=== PATIENT | female | born 1995 | race African-American/Black ===

== ENCOUNTER 2016-10-17 17:57 | Emergency (ER) | payer BC, MEDICAID ==
[~2016-10-17] VITALS: Ht 170.2 cm; Wt 80.0 kg
[2016-10-17] MEDS ORDERED: ALBU18HF2 IH (18:13)
[2016-10-17] MEDS ORDERED: ALBUTEROL (0.083%) 2.5MG/3ML NEB HHN STA ×2 (21:10→22:04)
[2016-10-17] MEDS ORDERED: PREDNISONE 20MG TABLET PO STA (21:10)
[2016-10-17] MEDS ORDERED: IPRATROPIUM BROMIDE (0.02%) 0.5MG/2.5ML NEB HHN STA ×2 (21:10→22:04)
[2016-10-17] MEDS ORDERED: ALBUTEROL (0.5%) 2.5MG/0.5ML NEB HHN ONE (22:42)
[2016-10-17] MEDS ORDERED: ONDANSETRON 4MG ODT PO ONE (23:00)
[2016-10-18 01:59] VITALS: BP 138/90
== END 2016-10-18 02:00 | disposition home or self-care (01) ==
LOC: ER 19:14
DX: J18.9 Pneumonia, unspecified organism (principal); J45.909 Unspecified asthma, uncomplicated; F12.10 Cannabis abuse, uncomplicated; Z79.899 Other long term (current) drug therapy; Z98.890 Other specified postprocedural states
CPT/HCPCS: 71010; 81025; 94640; 99284; J7512; J7611; Q0162

== ENCOUNTER 2018-02-12 12:54 | Emergency (ER) | payer MEDICAID, OTHER ==
[~2018-02-12] VITALS: Ht 170.2 cm; Wt 75.3 kg
[~2018-02-12 12:54] MED LIST: ALBU18HF2 IH
[2018-02-12] MEDS ORDERED: IBUPROFEN 600MG TABLET PO ONE (13:15)
[2018-02-12 13:26] VITALS: BP 112/76
== END 2018-02-12 15:17 | disposition home or self-care (01) ==
LOC: ER 12:54
DX: L03.032 Cellulitis of left toe (principal); L03.031 Cellulitis of right toe; J45.909 Unspecified asthma, uncomplicated; F12.10 Cannabis abuse, uncomplicated; Z98.890 Other specified postprocedural states
CPT/HCPCS: 99283

== ENCOUNTER 2018-03-16 18:01 | Emergency (ER) | payer OTHER, MEDICAID ==
[~2018-03-16] VITALS: Ht 170.2 cm; Wt 80.0 kg
[2018-03-16 18:07] VITALS: BP 133/83
== END 2018-03-16 20:14 | disposition home or self-care (01) ==
LOC: ER 18:32
DX: L03.032 Cellulitis of left toe (principal); L03.031 Cellulitis of right toe; B35.3 Tinea pedis; F12.10 Cannabis abuse, uncomplicated; J45.909 Unspecified asthma, uncomplicated; Z98.890 Other specified postprocedural states; Z82.49 Family history of ischemic heart disease and other diseases of the circulatory system
CPT/HCPCS: 99283

== ENCOUNTER 2018-07-15 17:09 | Emergency (ER) | payer OTHER, MEDICAID ==
[~2018-07-15] VITALS: Ht 167.6 cm; Wt 75.0 kg
[2018-07-15] MEDS ORDERED: IBUPROFEN 600MG TABLET PO STA (18:28)
[2018-07-15 20:49] VITALS: BP 121/70
== END 2018-07-15 20:50 | disposition home or self-care (01) ==
LOC: ER 17:09
DX: S39.82XA Other specified injuries of lower back, initial encounter (principal); R51 Headache; M79.632 Pain in left forearm; J45.909 Unspecified asthma, uncomplicated; Z98.890 Other specified postprocedural states; V43.52XA Car driver injured in collision with other type car in traffic accident, initial encounter; Y93.89 Activity, other specified; Y92.488 Other paved roadways as the place of occurrence of the external cause
CPT/HCPCS: 72100; 73090; 81025; 99284

== ENCOUNTER 2018-07-23 13:37 | Emergency (ER) | payer MEDICAID, OTHER ==
[~2018-07-23] VITALS: Ht 170.2 cm; Wt 84.0 kg
[2018-07-23 18:48] LABS: CLARITY URINE CLEAR (CLEAR); COLOR URINE YELLOW (YELLOW); KETONES URINE NEGATIVE (NEGATIVE); LEUKOCYTE ESTERASE URINE 1+ (NEGATIVE); NITRITE URINE NEGATIVE (NEGATIVE); OCCULT BLOOD URINE NEGATIVE (NEGATIVE); PH URINE 5.5 (4.5-8.0); PROTEIN URINE NEGATIVE (NEGATIVE); SPECIFIC GRAVITY URINE 1.024 (1.005-1.030); UROBILINOGEN URINE 0.2 E.U./dL (0.2-1.0)
[2018-07-23] MEDS ORDERED: FLUCONAZOLE 100MG TABLET PO ONE (19:30)
[2018-07-23 20:24] VITALS: BP 138/83
== END 2018-07-23 20:25 | disposition home or self-care (01) ==
LOC: ER 13:37
DX: N39.0 Urinary tract infection, site not specified (principal); B37.3 Candidiasis of vulva and vagina; J45.909 Unspecified asthma, uncomplicated; Z98.890 Other specified postprocedural states; Z79.899 Other long term (current) drug therapy
CPT/HCPCS: 81025; 99283

== ENCOUNTER 2018-09-08 10:01 | Emergency (ER) | payer MEDICAID ==
[~2018-09-08] VITALS: Ht 170.2 cm; Wt 73.0 kg
[2018-09-08 10:14] VITALS: BP 129/92
[2018-09-08 12:33] LABS: CLARITY URINE CLOUDY (CLEAR); COLOR URINE YELLOW (YELLOW); KETONES URINE NEGATIVE (NEGATIVE); LEUKOCYTE ESTERASE URINE NEGATIVE (NEGATIVE); NITRITE URINE NEGATIVE (NEGATIVE); OCCULT BLOOD URINE NEGATIVE (NEGATIVE); PROTEIN URINE NEGATIVE (NEGATIVE)
== END 2018-09-08 14:20 | disposition home or self-care (01) ==
LOC: ER 10:44
DX: J20.9 Acute bronchitis, unspecified (principal); N89.8 Other specified noninflammatory disorders of vagina; J45.909 Unspecified asthma, uncomplicated; Z98.890 Other specified postprocedural states
CPT/HCPCS: 81025; 99283